=== PATIENT | female | born 1955 | race African-American/Black ===

== ENCOUNTER 2018-11-07 07:35 | Day surgery (SDC) | payer MEDICARE ==
[~2018-11-07] VITALS: Ht 167.6 cm; Wt 138.3 kg
--- NOTE | ~2018-11-07 | OP ---
PATIENT NAME: TORSTEN GAN MEDICAL RECORD: [id number] :57 LOCATION:[facility] ADMISSION DATE: SURGEON: ROBY ANDERSON MD DATE OF OPERATION: 11/07/2018 PREOPERATIVE DIAGNOSES: 1. End-stage renal disease. 2. Congestive heart failure, undifferentiated. 3. Hypertension. 4. Hyperlipidemia. 5. History of pulmonary embolus, on Eliquis. 6. Morbid obesity with a BMI of 50. POSTOPERATIVE DIAGNOSES: 1. End-stage renal disease. 2. Congestive heart failure, undifferentiated. 3. Hypertension. 4. Hyperlipidemia. 5. History of pulmonary embolus, on Eliquis. 6. Morbid obesity with a BMI of 50. PROCEDURE: Left forearm loop AV graft with 4 x 7 cm tapered graft. SURGEON: Roby Anderson MD REPORT OF PROCEDURE: The patient's left upper extremity was prepped and draped in sterile fashion. A transverse incision was made just inferior to the fold of the patient's left elbow. Ultrasound has been used to map out the patient's already and vein. As we dissected down to the antecubital vein, we were able to dissect out the multiple branches of this. Vessel loops were placed on all branches proximally and distally. We then were able to dissect out 2 arteries that were present on the lateral aspect of the arm. These appeared to be the branches of the brachial artery, neither one of these were very large in caliber. The larger of the 2 was down deeper in the tissue. This was dissected free and vessel loops were placed proximally and distally. We then gave the patient 5000 units of heparin IV. Skin incisions were made on the distal aspect of the forearm times 2. We then tunneled a 4 x 7 cm tapered PTFE graft through the tissues until it rested in good position in the antecubital opening. We performed arterial anastomosis first. We cut the distal end of the graft at an angle and then made an arteriotomy in brachial artery. We flushed this proximally and distally with heparinized saline. We then performed an end-to-side anastomosis using 7-0 Prolene. At the conclusion of this, we had good pulsatile flow through the vessel. We were able to clamp the vessel off and allow flow through distally. We then performed an end-to-end anastomosis of the distal end of the graft to the vein. The proximal aspect of the vein was tied off using a 3-0 silk. The distal aspect of the vein was cut with a beveled tip along with the graft and these 2 ends of the graft and vein were sutured together in a running fashion using a 7-0 Prolene. At the conclusion of the case, we had good pulsatile flow through the graft and we had a bruit present on Doppler evaluation. There was no sign of any active bleeding anywhere through the graft or the anastomoses. We then irrigated out the wounds thoroughly with normal saline. The subcutaneous tissues were all reapproximated with interrupted 3-0 Vicryl and the skin incisions were all closed with running subcutaneous 5-0 Monocryl. OPERATIVE REPORT [id number] TORSTEN GAN COMPLICATIONS: None. CONDITION: Stable. ANESTHESIA: General endotracheal. BLOOD LOSS: 50 mL. TRANSINT:[id number] Voice Confirmation ID: [id number] DOCUMENT ID: [id number] ROBY ANDERSON MD CC: ANN JOSE MD [id number] DICTATION DATE: 11/07/18 1253 BALANCE STAFF INSPECTOR: 11/07/18 1345 [facility] [address] [id number]
[2018-11-07 08:05] LABS: BASOPHILS 0.2 % (0-2); EOSINOPHILS 1.8 % (0-7); HEMATOCRIT 32.8 % (36.0-48.0); HEMOGLOBIN 9.9 g/dL (12-16); IMMATURE GRANULOCYTES 0.2 % (0-5); LYMPHOCYTES 11.3 % (15-50); MCH 27.8 pg (26.0-34.0); MCHC 30.2 g/dL (31.0-37.0); MCV 92.1 fL (80.0-100.0); MONOCYTES 7.7 % (2-11); NEUTROPHILS 78.8 % (40-80); PLATELET COUNT 232 10x3/uL (130-400); RBC 3.56 10x6/uL (4.00-5.40); RDW 16.4 % (11.5-14.5); WBC 6.1 10x3/uL (4.8-10.8)
[2018-11-07 08:09] LABS: ANION GAP 10.9 mmol/L (8-16); CALCIUM 8.7 mg/dL (8.5-10.1); CARBON DIOXIDE 27.9 mmol/L (21.0-32.0); CREATININE - SERUM 1.8 mg/dL (0.6-1.3); POTASSIUM - SERUM 3.8 mmol/L (3.5-5.1)
[2018-11-07 08:23] LABS: APTT 36.3 SECONDS (22.8-39.4); INR 1.09 (0.85-1.17); PROTIME 13.6 SECONDS (11.6-15.0)
[2018-11-07] MEDS ORDERED: PROTONIX40 MG PO (08:45)
[2018-11-07] MEDS ORDERED: ELIQUIS2.5 MG PO (08:45)
[2018-11-07] MEDS ORDERED: AMOXICILLIN875 MG PO (08:46)
[2018-11-07] MEDS ORDERED: NORVASC5 MG PO (08:46)
[2018-11-07] MEDS ORDERED: HYDROCODON-ACE1 EA10 PO ×2 (08:46→12:47)
[2018-11-07] MEDS ORDERED: RENVELA800 MG PO (08:47)
[2018-11-07] MEDS ORDERED: ATARAX 25 MG TA25 MG PO (08:48)
[2018-11-07 08:59] VITALS: Ht 167.6 cm; Wt 138.3 kg
== END 2018-11-07 15:25 | disposition home or self-care (01) ==
LOC: D.OPS 07:35
PROVIDERS: ATTEND Surgery
DX: I13.2 Hypertensive heart and chronic kidney disease with heart failure and with stage 5 chronic kidney disease, or end stage renal disease (principal); N18.6 End stage renal disease; I50.9 Heart failure, unspecified; E78.5 Hyperlipidemia, unspecified; Z86.711 Personal history of pulmonary embolism; Z79.01 Long term (current) use of anticoagulants; E66.01 Morbid (severe) obesity due to excess calories; Z68.43 Body mass index [BMI] 50.0-59.9, adult; Z01.812 Encounter for preprocedural laboratory examination

== ENCOUNTER 2018-12-10 07:39 | Day surgery (SDC) | payer MEDICARE ==
[~2018-12-10] VITALS: Ht 167.6 cm; Wt 138.3 kg
[~2018-12-10 07:39] MED LIST: AMOXICILLIN875 MG PO; ATARAX 25 MG TA25 MG PO; ELIQUIS2.5 MG PO; HYDROCODON-ACE1 EA10 PO; NORVASC5 MG PO; PROTONIX40 MG PO; RENVELA800 MG PO
[2018-12-10 08:09] LABS: BASOPHILS 0.2 % (0-2); EOSINOPHILS 2.3 % (0-7); HEMATOCRIT 37.8 % (36.0-48.0); HEMOGLOBIN 11.3 g/dL (12-16); IMMATURE GRANULOCYTES 0.2 % (0-5); LYMPHOCYTES 14.4 % (15-50); MCH 28.3 pg (26.0-34.0); MCHC 29.9 g/dL (31.0-37.0); MCV 94.5 fL (80.0-100.0); MEAN PLATELET VOLUME 9.6 fL (7.4-10.4); MONOCYTES 6.1 % (2-11); NEUTROPHILS 76.8 % (40-80); PLATELET COUNT 214 10x3/uL (130-400); RDW 16.7 % (11.5-14.5); WBC 6.1 10x3/uL (4.8-10.8)
[2018-12-10 08:13] LABS: ANION GAP 13.2 mmol/L (8-16); CALCIUM 8.8 mg/dL (8.5-10.1); CARBON DIOXIDE 28.7 mmol/L (21.0-32.0); CREATININE - SERUM 1.8 mg/dL (0.6-1.3); POTASSIUM - SERUM 3.9 mmol/L (3.5-5.1)
[2018-12-10 08:30] LABS: APTT 29.6 SECONDS (22.8-39.4); INR 1.09 (0.85-1.17); PROTIME 13.6 SECONDS (11.6-15.0)
[2018-12-10 09:22] VITALS: Ht 167.6 cm; Wt 138.3 kg
--- NOTE | 2018-12-13 10:09 | OP ---
PATIENT NAME: TORSTEN GAN MEDICAL RECORD: [id number] :57 LOCATION:[facility] ADMISSION DATE: SURGEON: ROBY ANDERSON MD DATE OF OPERATION: 12/10/2018 PREOPERATIVE DIAGNOSES: 1. End-stage renal disease. 2. Clotted left upper extremity AV graft. 3. Undifferentiated congestive heart failure. 4. Hypertension. 5. Hyperlipidemia. 6. Morbid obesity. POSTOPERATIVE DIAGNOSES: 1. End-stage renal disease. 2. Clotted left upper extremity AV graft. 3. Undifferentiated congestive heart failure. 4. Hypertension. 5. Hyperlipidemia. 6. Morbid obesity. PROCEDURE: 1. Left upper extremity mechanical thrombectomy. 2. Left upper extremity fistulogram. 3. Angioplasty with a 3 x 40 mm angioplasty balloon. SURGEON: Roby Anderson MD REPORT OF PROCEDURE: Left upper extremity was prepped and draped in sterile fashion. An opening was made on the lateral aspect of the distal left forearm overlying the graft. A couple of vessel loops were placed proximally and distally around the graft and an opening was made in the graft longitudinally with an 11 blade. There was no flow through the vessel. We started with the efferent limb of the graft. We placed a 4 Len catheter through this and pulled out a large amount of old clot. The clot was removed until we had some good nonpulsatile venous backflow through the vessel. Once we had this done, the patient was given 5000 units of heparin IV and we flushed this distal aspect of the AV graft with heparin flush. We then ran the Len catheter proximally on the afferent limb of the graft and was able to remove a large amount of clot. We eventually had some pulsatile flow present, but it was weak. A 5-Marshallese sheath was inserted and a fistulogram was performed of the afferent limb of the graft and the arterial anastomosis. This showed a small arterial anastomosis leading into a small arterial vessel. We were able to place a 0.014 wire through this anastomosis and extended a 3 x 40 mm angioplasty balloon over the anastomosis. We were able to dilate this section up easily to 3 mm balloon. At the conclusion of this, the graft and the anastomosis were open except for 1 small area where there was a very small collection of tissue. This tissue was not causing any impedance and flow and even at this spot, there was about a 90% opening of the graft and anastomosis. The flow was much better at this point. We then inspected the distal aspect of the graft and could see there was no evidence of any clot present and the flush flowed much easier. We then removed all of the catheters and wires and reapproximated the graftotomy using running 6-0 Prolene. At the conclusion of this, we had no evidence of any leakage or bleeding. The graft had a pulsatile flow present through it all the way up to the venous anastomosis. We then irrigated out the wound with normal saline and OPERATIVE REPORT [id number] TORSTEN GAN reapproximated the skin with 2-0 Vicryl in a vertical mattress fashion. COMPLICATIONS: None. CONDITION: Stable. ANESTHESIA: General endotracheal. BLOOD LOSS: 50 mL. TRANSINT:[id number] Voice Confirmation ID: [id number] DOCUMENT ID: [id number] ROBY ANDERSON MD at 1009 CC: ANN JOSE MD [id number] DICTATION DATE: 12/10/18 1224 TOOL DESIGN DRAFTSPERSON: 12/10/18 1429 [facility] 12/10/18 [facility] [address] [place] [address]
== END 2018-12-10 14:37 | disposition home or self-care (01) ==
LOC: D.OPS 07:39
PROVIDERS: Anesthesiology; ATTEND Surgery
DX: T82.868A Thrombosis due to vascular prosthetic devices, implants and grafts, initial encounter (principal); I13.2 Hypertensive heart and chronic kidney disease with heart failure and with stage 5 chronic kidney disease, or end stage renal disease; N18.6 End stage renal disease; I50.9 Heart failure, unspecified; Z99.2 Dependence on renal dialysis; E78.5 Hyperlipidemia, unspecified; E66.01 Morbid (severe) obesity due to excess calories; Z01.812 Encounter for preprocedural laboratory examination

== ENCOUNTER 2018-12-27 07:10 | Day surgery (SDC) | payer MEDICARE ==
[~2018-12-27] VITALS: Ht 165.1 cm; Wt 136.1 kg
--- NOTE | ~2018-12-27 | OP ---
PATIENT NAME: TORSTEN GAN MEDICAL RECORD: [id number] :57 LOCATION:[facility] ADMISSION DATE: SURGEON: ROBY ANDERSON MD DATE OF OPERATION: 12/27/2018 PREOPERATIVE DIAGNOSES: 1. Clotted left upper extremity arteriovenous graft. 2. Clotted right IJ HemoSplit catheter. 3. End-stage renal disease. 4. Morbid obesity. 5. Anemia of chronic disease. 6. Hypertension. POSTOPERATIVE DIAGNOSES: 1. Clotted left upper extremity arteriovenous graft. 2. Clotted right IJ HemoSplit catheter. 3. End-stage renal disease. 4. Morbid obesity. 5. Anemia of chronic disease. 6. Hypertension. PROCEDURE: 1. Right IJ 19 cm HemoSplit catheter exchange with fluoroscopic interpretation. 2. Left AV graft mechanical thrombectomy. 3. Left AV graft fistulogram. SURGEON: Roby Anderson MD REPORT OF PROCEDURE: The patient's right neck and chest were prepped and draped in sterile fashion. The patient had an indwelling hemodialysis catheter present. A skin incision was made on the neck overlying this graft and we were able to eviscerate a portion of this graft through the wound. We transected the graft and removed its distal aspect from its attachments to the subcutaneous tissues. We then placed a wire down through the distal end of the catheter and removed the remaining portion of the catheter. Fluoroscopy was used to note that the wire was in good position in the venous system. We then made a small skin incision on the patient's right lateral chest and tunneled a 19-cm HemoSplit catheter from this incision to the wire exit site. The dilator trocar device was placed over the wire and the wire and dilator were removed. The catheter tip was advanced through the trocar and the trocar was then removed. The catheter was pulled back until it rested in good position at the right atrial superior vena caval junction. The catheter aspirated nonpulsatile dark blood and flushed easily with heparinized saline. We then flushed both catheters with 2 mL of 1000 per cc hep flush. The catheter was sutured into place with 3-0 nylons. There was some bleeding from the skin edge at the stab site on the chest, this was oversewn with a pursestring 5-0 Monocryl, which appeared to discontinue the bleeding. We then closed the skin incision in the neck with subcutaneous 5-0 Monocryl. We then dressed these wounds appropriately. The left arm was prepped and draped in sterile fashion. A skin incision was made on the distal and medial aspect of the patient's forearm loop AV graft. Using electrocautery, we dissected down to the AV graft and a blue vessel loops were placed proximally and distally. A longitudinal incision was made with an 11 blade through the graft and there was no evidence of any blood flow. We placed a 4 Len catheter proximally and distally. We were never able to pass a catheter through what was considered the anastomotic sites, OPERATIVE REPORT [id number] TORSTEN GAN eventually removed a large amount of clot and was able to flush out the graft with heparinized saline. A 6-Azerbaijani sheath was then inserted in the graft going towards the venous anastomosis. Multiple attempts were made to try to pass a wire through the venous anastomosis, but we were never able to pass a 0.035 Glidewire. Multiple attempts were made with no success. So at this point, I decided with the problems that we have had with the graft and multiple times a day they clotted, that we would just discontinued the surgery. At this point, the sheath and wire were removed. The graft was closed with a running 6-0 Prolene and the subcutaneous tissues were closed with running 5-0 Monocryl. COMPLICATIONS: None. CONDITION: Stable. ANESTHESIA: General endotracheal. BLOOD LOSS: 50 mL. TRANSINT:[id number] Voice Confirmation ID: [id number] DOCUMENT ID: [id number] ROBY ANDERSON MD CC: ANN JOSE MD [id number] DICTATION DATE: 12/27/18 1020 BILLET SAWYER: 12/27/18 1044 [facility] [address] [id number]
[2018-12-27 07:47] LABS: ANION GAP 12.6 mmol/L (8-16); CARBON DIOXIDE 28.5 mmol/L (21.0-32.0); CREATININE - SERUM 2.1 mg/dL (0.6-1.3); POTASSIUM - SERUM 4.1 mmol/L (3.5-5.1)
[2018-12-27 07:58] LABS: BASOPHILS 0.2 % (0-2); EOSINOPHILS 2.2 % (0-7); HEMATOCRIT 32.2 % (36.0-48.0); HEMOGLOBIN 9.8 g/dL (12-16); LYMPHOCYTES 13.4 % (15-50); MCH 28.4 pg (26.0-34.0); MCHC 30.4 g/dL (31.0-37.0); MCV 93.3 fL (80.0-100.0); MEAN PLATELET VOLUME 10.7 fL (7.4-10.4); MONOCYTES 8.1 % (2-11); NEUTROPHILS 76.1 % (40-80); PLATELET COUNT 226 10x3/uL (130-400); RBC 3.45 10x6/uL (4.00-5.40); RDW 16.3 % (11.5-14.5); WBC 6.4 10x3/uL (4.8-10.8)
[2018-12-27 08:08] VITALS: Ht 165.1 cm; Wt 136.1 kg
[2018-12-27] MEDS ORDERED: LOVASTATIN20 MG PO (08:25)
[2018-12-27] MEDS ORDERED: TYLENOL W/CODEI1 TAB (08:25)
== END 2018-12-27 13:05 | disposition home or self-care (01) ==
LOC: D.OPS 07:10
PROVIDERS: ATTEND Surgery
DX: T82.868A Thrombosis due to vascular prosthetic devices, implants and grafts, initial encounter (principal); I12.0 Hypertensive chronic kidney disease with stage 5 chronic kidney disease or end stage renal disease; N18.6 End stage renal disease; Z99.2 Dependence on renal dialysis; D63.1 Anemia in chronic kidney disease; E66.01 Morbid (severe) obesity due to excess calories; Z01.812 Encounter for preprocedural laboratory examination